=== PATIENT | male | born 1990 | race Caucasian/White ===

== ENCOUNTER 2020-05-01 11:38 | Emergency (ER) | payer OTHER ==
[~2020-05-01] VITALS: Ht 172.7 cm; Wt 104.3 kg
[2020-05-01 11:55] VITALS: BP 127/91; Ht 172.7 cm; Wt 104.3 kg
== END 2020-05-01 14:40 | disposition home or self-care (01) ==
LOC: ED 11:38
DX: S22.32XA Fracture of one rib, left side, initial encounter for closed fracture (principal); M54.9 Dorsalgia, unspecified; F17.210 Nicotine dependence, cigarettes, uncomplicated; Z71.6 Tobacco abuse counseling; X58.XXXA Exposure to other specified factors, initial encounter; Y93.89 Activity, other specified; Y92.89 Other specified places as the place of occurrence of the external cause; Y99.8 Other external cause status
CPT/HCPCS: 72072; 99406